=== PATIENT | male | born 1995 | race Two or more races ===

== ENCOUNTER 2021-03-27 13:48 | Emergency (ER) | payer OTHER ==
[~2021-03-27] VITALS: Ht 175.3 cm; Wt 81.6 kg
[2021-03-27] MEDS ORDERED: diazePAM 5 MG TAB PO ONE (15:30)
[2021-03-27] MEDS ORDERED: LIDOCAINE 1% HCL (LOCAL ANESTH.) INJ 20ML MDV IJ ONE (15:30)
[2021-03-27] MEDS ORDERED: HYDROcodone-ACET 5/325MG TAB PO ONE ×2 (15:30→17:00)
[2021-03-27 16:00] VITALS: BP 142/84
== END 2021-03-27 19:11 | disposition home or self-care (01) ==
LOC: ER 13:48
DX: S43.014A Anterior dislocation of right humerus, initial encounter (principal); W18.39XA Other fall on same level, initial encounter; Y93.39 Activity, other involving climbing, rappelling and jumping off; Y92.89 Other specified places as the place of occurrence of the external cause; Y99.8 Other external cause status
CPT/HCPCS: 23650; 73020; 73030; 99284; J2001